=== PATIENT | female | born 1985 | race Caucasian/White ===

== ENCOUNTER → 2016-11-14 | Outpatient (CLI) | payer OTHER ==
[~2016-11-14] MED LIST: HYDR-5688 PO; IUD'IUD; ONDA4TAB10 SL; PRT40 PO; SUCR1TAB PO; TYL325X PO
[2016-11-14 09:56] LABS: CHOLESTEROL/HDL RATIO 2.8
== END | disposition home or self-care (01) ==
LOC: C.LAB 07:09
PROVIDERS: ATTEND Internal Medicine
DX: Z13.220 Encounter for screening for lipoid disorders (principal); Z13.1 Encounter for screening for diabetes mellitus

== ENCOUNTER → 2017-01-02 | Outpatient (CLI) | payer OTHER | END | disposition home or self-care (01) | LOC: C.PAPS 09:01 | PROVIDERS: ATTEND Obstetrics & Gynecology | DX: Z01.419 Encounter for gynecological examination (general) (routine) without abnormal findings (principal) ==

== ENCOUNTER → 2017-08-23 | Outpatient (CLI) | payer OTHER ==
--- NOTE | 2017-08-23 08:49 | DIAGNOSTIC IMAGING REPORT ---
R WRIST MIN 3 VIEWS ROUTINE CLINICAL HISTORY: Right wrist pain. No known trauma. COMPARISON: None FINDINGS: There is no fracture, suspicious osseous lesion or erosion. There is possible ulnar positive variance. No lunate abnormality is identified. Suspected minimal radiocarpal joint space narrowing is noted. IMPRESSION: 1. No acute fracture. 2. Suspected minimal radiocarpal joint space narrowing and possible positive ulnar variance. Electronically signed by: Lukas Dubon M.D. 08/23/2017 8:47 AM Dictated Date/Time: 08/23/2017 8:46 AM
== END | disposition home or self-care (01) ==
LOC: C.RAD 08:16
PROVIDERS: ATTEND Physician Assistant
DX: S69.91XA Unspecified injury of right wrist, hand and finger(s), initial encounter (principal); X58.XXXA Exposure to other specified factors, initial encounter

== ENCOUNTER → 2017-12-19 | Outpatient (CLI) | payer OTHER ==
[~2017-12-19] MED LIST changes: +PANT1TAB4 PO; -PRT40 PO
== END | disposition home or self-care (01) ==
LOC: C.LAB1850 15:20
PROVIDERS: ATTEND Dermatology
DX: L40.0 Psoriasis vulgaris (principal)

== ENCOUNTER → 2017-12-20 | Outpatient (CLI) | payer OTHER ==
[2017-12-25 15:10] LABS: ANA SCREEN TC 249X POSITIVE (NEGATIVE); COMPLEMENT C4** TC 44982E 13 MG/DL (15-57)
[2017-12-27 08:28] LABS: ANA TITER > OR = 1:1280 TITER (<1:40)
== END | disposition home or self-care (01) ==
LOC: C.LAB1850 12:38
PROVIDERS: ATTEND Internal Medicine
DX: M25.50 Pain in unspecified joint (principal); Z79.899 Other long term (current) drug therapy

== ENCOUNTER → 2018-01-11 | Outpatient (CLI) | payer OTHER | END | disposition home or self-care (01) | LOC: C.PAPS 18:22 | PROVIDERS: ATTEND Obstetrics & Gynecology | DX: Z01.419 Encounter for gynecological examination (general) (routine) without abnormal findings (principal) ==